=== PATIENT | male | born 1960 | race Caucasian/White ===

== ENCOUNTER 2018-06-14 13:56 | Outpatient (CLI) | payer OTHER ==
[2014-09-30 19:41] VITALS: BP 154/77
[2018-06-14 14:52] LABS: eGFR (Non-African) > 60
== END 2018-06-14 13:58 ==
LOC: LAB 13:56
PROVIDERS: ATTEND Family Medicine
DX: Z00.00 Encounter for general adult medical examination without abnormal findings (principal); Z13.220 Encounter for screening for lipoid disorders; Z79.899 Other long term (current) drug therapy
CPT/HCPCS: 36415; 80053; 80061